=== PATIENT | female | born 1995 | race Caucasian/White ===

== ENCOUNTER 2020-01-08 16:21 | Emergency (ER) | payer BC, SELFPAY ==
[2020-01-08 16:26] VITALS: BP 117/80; PULSE 90; RESP 16; TEMP 37.3; O2SAT 100
--- NOTE | 2020-01-08 16:26 | ED.GENADULT ---
HPI - General Adult General Chief complaint: Upper Respiratory Infection Stated complaint: sore throat fever Time Seen by Provider: 01/08/20 16:26 Source: patient Mode of arrival: ambulatory Limitations: no limitations History of Present Illness HPI narrative: 24-year-old female patient presents to the the medical center with complaints of cold and flu symptoms that started 2 days ago. Patient states she started having a fever as high as 102, a cough, some chest congestion. Denies any runny nose. Patient states she does have a slight sore throat. Patient states she has been alternating Tylenol and ibuprofen for her symptoms. Patient states that she was tested this past Monday, the same day as her symptoms started for COVID-19. Patient states she found out today that she was negative. Patient states her symptoms continue. Patient denies any nausea, vomiting or diarrhea. Related Data Home Medications Medication Instructions Recorded Confirmed infliximab [Remicade] mg IV 01/08/20 Allergies Allergy/AdvReac Type Severity Reaction Status Date / Time codeine Allergy Intermediate HIVES, N/V Verified 01/08/20 16:43 Review of Systems Review of Systems: Narrative: CONSTITUTIONAL: Positive fever, denies chills, or sweats. EYES: Denies visual changes, redness, or discharge. ENT: Denies rhinorrhea, congestion, positive sore throat, denies otalgia. CARDIOVASCULAR: Positive chest congestion, denies palpitations, or edema. RESPIRATORY: Positive cough, denies dyspnea. GASTROINTESTINAL: Denies abdominal pain, nausea, vomiting, or diarrhea. GENITOURINARY: Denies dysuria or hematuria. SKIN: Denies rash or itching. MUSCULOSKELETAL: Denies back pain, joint pain, or myalgia. NEUROLOGIC: Denies headache, numbness, or weakness. PSYCHIATRIC: Denies anxiety or depression. PMFSH Comments At the time of my signature I agree with nursing past medical history, surgical, social, and family history. There is no relevant family history pertinent to the presenting complaint. Exam Narrative: Exam Narrative: GENERAL: Well-appearing, well-nourished, and in no acute distress. HEAD: Normocephalic, atraumatic. EYES: PERRLA and EOMI. ENT: Nares clear, no rhinorrhea or epistaxis. Mucous membranes moist. Posterior pharynx no erythema, tonsil management, exudates or lesions present. Bilateral TMs are clear with no erythema or foreign bodies in the canal. NECK: Supple. No lymphadenopathy CHEST: Clear to auscultation. No respiratory distress. Patient able talk in clear complete sentences. HEART: Regular rate and rhythm. No murmur heard. Normal peripheral pulses. ABDOMEN: Soft, nontender, nondistended, normal active bowel sounds. EXTREMITIES: Normal range of motion. No edema. SKIN: Warm, dry, no rash. NEURO: No focal deficits. Alert and oriented x3. Course Reevaluation(s) Reevaluation #1: Reevaluated patient after test results have resulted. Discussed with her that her strep and flu are both negative. Discussed with her we are going to go ahead and send her for another COVID test. Discussed with her that I did fax over the order and noted on there that she should not be tested before Monday of this week. Discussed with patient that meantime she can continue taking [id number] medications however she develops worsening cough or shortness of breath she would need to go the emergency department however I advised her she needs to just go ahead and treat herself as if she does have COVID. Discussed with her that she should not be going to work, she needs to continue to isolate at home and try instead stay away from other people. Patient verbalized understanding of this denies any other questions or concerns at this time. Date: 01/08/20 Time: 16:57 Vital Signs Vital signs: Vital Signs Temperature 37.3 C 01/08/20 16:26 Pulse Rate 90 01/08/20 16:26 Respiratory Rate 16 01/08/20 16:26 Blood Pressure 117/80 01/08/20 16:26 Pulse Oximetry 100 01/08/20 16
== END 2020-01-08 16:57 | disposition home or self-care (01) ==
PROVIDERS: Emergency Provider Nurse Practitioner Family; PCP Internal Medicine
DX: J06.9 Acute upper respiratory infection, unspecified (principal); R05 Cough; Z20.828 Contact with and (suspected) exposure to other viral communicable diseases
CPT/HCPCS: 87081; 87804; 87880; 99213; G0463